=== PATIENT | female | born 1995 | race Two or more races ===

== ENCOUNTER 2021-12-22 22:38 | Emergency (ER) | payer BC | END 2021-12-22 23:37 | disposition home or self-care (01) | LOC: JP.ED 22:38 | DX: U07.1 COVID-19 (principal); J06.9 Acute upper respiratory infection, unspecified; F17.210 Nicotine dependence, cigarettes, uncomplicated | CPT/HCPCS: 99281; 99283; U0002 ==

== ENCOUNTER 2022-09-10 01:06 | Emergency (ER) | payer BC ==
[2022-09-10] MEDS ORDERED: Ondansetron 4 MG Tab.DIS PO ONE (01:40)
[2022-09-10] MEDS ORDERED: Ondansetron 4 MG/2 ML SDV IVPUSH ONE (02:12)
[2022-09-10] MEDS ORDERED: Sodium Chloride 0.9% 1,000 ML IV SCH (02:15)
[2022-09-10 02:18] LABS: ESTIMATED GFR 122 mL/min (>60)
[2022-09-10] MEDS ORDERED: Acetaminophen 325 MG Tab PO ONE (02:50)
== END 2022-09-10 03:40 | disposition home or self-care (01) ==
LOC: JP.ED 01:06
DX: B34.9 Viral infection, unspecified (principal); Z20.822 Contact with and (suspected) exposure to COVID-19
CPT/HCPCS: 36415; 70450; 80053; 85025; 87635; 96361; 96374; 99282; 99284; J2405; J7030; Q0162; U0002